=== PATIENT | male | born 1955 | race Two or more races ===

== ENCOUNTER 2021-11-23 10:04 | Emergency (ER) | payer OTHER, MEDICAID ==
[~2021-11-23] VITALS: Ht 170.2 cm; Wt 86.0 kg
[~2021-11-23 10:04] MED LIST: ASPI-394 PO; ATEN50TA PO; ATOR20TA50 PO; LISI-716 PO; METF-370 PO; NITR0.4S29 SL
[2021-11-23] MEDS ORDERED: SODIUM CHLORIDE 0.9% 1,000 ML IV ONE (10:30)
[2021-11-23] MEDS ORDERED: cloNIDine HCL 0.1 MG TAB PO ONE (10:45)
[2021-11-23] MEDS ORDERED: LABETALOL HCL 5 MG/ML 4ML SYRINGE IV ONE (11:15)
[2021-11-23 11:18] LABS: Urine Bacteria FEW /hpf (None Seen); Urine Blood TRACE /uL (Negative); Urine Mucus FEW (None Seen); Urine Specific Gravity 1.037 (1.001-1.035); Urine WBC 94 /hpf (0 - 3)
[2021-11-23] MEDS ORDERED: ONDANSETRON HCL 4 MG/2 ML VIAL IV ONE (11:30)
[2021-11-23 11:42] LABS: Basophils # (auto) 0 10 ^3/uL (0-0.2); Basophils % (auto) 0.1 % (0.0-2.0); Eosinophils # (auto) 0 10 ^3/uL (0-0.8); Hematocrit 47.5 % (41.0-53.0); Hemoglobin 16.1 g/dL (13.5-17.5); Lymphocytes # (auto) 1.1 10 ^3/uL (0.4-5.4); Lymphocytes % (auto) 14.2 % (10.0-50.0); Mean Corpuscular Hemoglobin 29.9 pg (28.0-32.0); Mean Corpuscular Hgb Conc. 33.9 g/dL (32.0-36.0); Mean Corpuscular Volume 88.1 fL (80.0-100.0); Monocytes # (auto) 0.5 10 ^3/uL (0-1.3); Neutrophils # (auto) 6.1 10 ^3/uL (1.6-8.6); Neutrophils % (auto) 79.7 % (37.0-80.0); Nucleated Red Blood Cells % 0.1 %; Red Blood Cells 5.39 10^6/uL (4.5-5.90); Red Cell Distribution Width 13.5 % (11.8-14.3); White Blood Cell 7.7 10^3/uL (4.4-10.8)
[2021-11-23 12:09] LABS: Albumin 3.8 g/dL (3.4-5.0); BUN/Creatinine Ratio 17.2; Bilirubin, Total 3.6 mg/dL (0.2-1.0); Calcium 8.8 mg/dL (8.5-10.1); Total Protein 7.7 g/dL (6.4-8.2)
[2021-11-23] MEDS ORDERED: CIPR-173 PO (12:22)
[2021-11-23 12:40] VITALS: BP 138/78
== END 2021-11-23 12:47 | disposition home or self-care (01) ==
LOC: ER 10:04
DX: K52.9 Noninfective gastroenteritis and colitis, unspecified (principal); I16.0 Hypertensive urgency; N39.0 Urinary tract infection, site not specified; E11.9 Type 2 diabetes mellitus without complications; Z86.73 Personal history of transient ischemic attack (TIA), and cerebral infarction without residual deficits; Z79.2 Long term (current) use of antibiotics; Z79.82 Long term (current) use of aspirin; Z79.899 Other long term (current) drug therapy
CPT/HCPCS: 36415; 71045; 74176; 80053; 81001; 84484; 85025; 96374; 99285; J2405; J7030

== ENCOUNTER 2022-06-14 12:34 | Emergency (ER) | payer OTHER ==
[~2022-06-14] VITALS: Ht 170.2 cm; Wt 83.5 kg
[~2022-06-14 12:34] MED LIST changes: +CIPR-173 PO
[2022-06-14] MEDS ORDERED: cloNIDine HCL 0.1 MG TAB PO ONE (13:15)
[2022-06-14 13:48] LABS: Basophils # (auto) 0.1 10 ^3/uL (0-0.2); Basophils % (auto) 0.7 % (0.0-2.0); Eosinophils # (auto) 0 10 ^3/uL (0-0.8); Eosinophils % (auto) 0.1 % (0.0-7.0); Hematocrit 50.6 % (41.0-53.0); Hemoglobin 17.1 g/dL (13.5-17.5); Lymphocytes # (auto) 1.6 10 ^3/uL (0.4-5.4); Mean Corpuscular Hgb Conc. 33.7 g/dL (32.0-36.0); Monocytes # (auto) 0.6 10 ^3/uL (0-1.3); Monocytes % (auto) 7.7 % (0.0-12.0); Neutrophils # (auto) 5.1 10 ^3/uL (1.6-8.6); Neutrophils % (auto) 69.5 % (37.0-80.0); Nucleated Red Blood Cells % 0.1 %; Red Blood Cells 5.69 10^6/uL (4.5-5.90); Red Cell Distribution Width 13.4 % (11.8-14.3); White Blood Cell 7.3 10^3/uL (4.4-10.8)
[2022-06-14 13:58] LABS: Calcium 9.1 mg/dL (8.5-10.1); Potassium 4.3 mmol/L (3.5-5.1)
[2022-06-14 14:04] LABS: Albumin 3.8 g/dL (3.4-5.0); BUN/Creatinine Ratio 20.2; Total Protein 7.8 g/dL (6.4-8.2)
[2022-06-14 15:40] LABS: Urine Bacteria MANY /hpf (None Seen); Urine Blood Negative /uL (Negative); Urine Hyaline Cast FEW /lpf (0 - 2); Urine Specific Gravity 1.035 (1.001-1.035); Urine WBC 70 /hpf (0 - 3)
[2022-06-14] MEDS ORDERED: InsuLIN REG 1unit/0.01ml Soln (100units/ml) IV ONE (15:45)
[2022-06-14] MEDS ORDERED: SODIUM CHLORIDE 0.9% 1,000 ML IV ONE (15:45)
[2022-06-14] MEDS ORDERED: BACDST PO (16:08)
[2022-06-14 17:35] VITALS: BP 154/92
== END 2022-06-14 17:43 | disposition home or self-care (01) ==
LOC: ER 12:34
DX: I16.0 Hypertensive urgency (principal); N39.0 Urinary tract infection, site not specified; E11.65 Type 2 diabetes mellitus with hyperglycemia; Z86.73 Personal history of transient ischemic attack (TIA), and cerebral infarction without residual deficits; Z79.82 Long term (current) use of aspirin; Z79.899 Other long term (current) drug therapy
CPT/HCPCS: 36415; 80053; 81001; 82962; 84484; 85025; 93005; 96361; 96374; 99284; J1815; J7030